=== PATIENT | female | born 1955 | race Caucasian/White ===

== ENCOUNTER 2023-11-19 09:01 | Observation (INO) | payer MEDICARE ==
[~2023-11-19] VITALS: Ht 162.6 cm; Wt 86.0 kg
[~2023-11-19 09:01] MED LIST: COZAAR 25MG25 MG/TAB PO; ESSENTIAL OILS; NORCO 325 MG-7.1 TAB PO; OSCAL 500 TAB500 MG PO; PLAVIX 75MG TAB75 MG PO; VITAMIN B1100 MCG/ML PO; VITAMIN C500 MG PO; moringa PO
[2023-11-19] MEDS ORDERED: ASPIRIN 81M81 MG/TA2 PO (09:19)
[2023-11-19] MEDS ORDERED: NS 1,000 ML IV ONE (10:15)
[2023-11-19 10:47] LABS: HEMATOCRIT 43.3 % (37.0-47.0); HEMOGLOBIN 14.4 g/dl (12.5-16.0); MEAN CELL VOLUME 91 fl (80.0-100.0); MEAN CORPUSCULAR HEMOGLOBIN 30 pg (27-31); MEAN CORPUSCULAR HGB CONC 33 g/dl (33.0-37.0); MEAN PLATELET VOLUME 10.7 fl (7.4-10.4); PLATELET COUNT 171 K/mm3 (130-400); RED BLOOD COUNT 4.78 M/mm3 (4.10-5.30); REDCELL DISTRIBUTION WIDTH-CV 12.2 % (11.5-14.5)
[2023-11-19 11:15] LABS: ALBUMIN 4.3 g/dL (3.4-4.8); CALCIUM 9.7 mg/dL (8.4-10.2); CREATININE, serum 1.04 mg/dL (0.57-1.11); POTASSIUM 4.1 mEq/L (3.5-4.5); TOTAL PROTEIN 8.1 g/dl (6.2-8.1)
[2023-11-19 11:43] LABS: BAND 1 % (0-10); BASOPHIL 1 % (0-2); LYMPHOCYTE 3 % (20.0-51.0); NEUTROPHILS 89 % (42.0-75.2)
[2023-11-19 11:44] LABS: PLATELET ESTIMATE NORMAL (NORMAL)
[2023-11-19] MEDS ORDERED: Iohexol 300 - 100 ML VIAL IV ONE (11:57)
[2023-11-19] MEDS ORDERED: NS 100 ML IV SCH (11:57)
[2023-11-19 12:10] LABS: URINE APPEARANCE CLOUDY (CLEAR/HAZY); URINE BLOOD 1+ (NEGATIVE); URINE COLOR YELLOW (YELLOW); URINE GLUCOSE NEGATIVE (NEGATIVE); URINE KETONE 1+ (NEGATIVE); URINE NITRATE NEGATIVE (NEGATIVE); URINE PROTEIN(semi-quant) TRACE (NEGATIVE)
[2023-11-19 12:23] LABS: COLLECTION METHOD CLEAN CATCH
[2023-11-19] MEDS ORDERED: Ondansetron 4 MG/2 ML VIAL IV PRN ×2 (13:15→17:45)
[2023-11-19] MEDS ORDERED: LR 1,000 ML IV SCH ×2 (13:15→17:45)
[2023-11-19] MEDS ORDERED: HYDROmorphone 0.5 MG/0.5 ML SYRINGE IV PRN ×2 (13:15→17:45)
[2023-11-19] MEDS ORDERED: cefTRIAXone 2 G in Water For Injection,Sterile 20 ML IV SCH (13:15)
[2023-11-19] MEDS ORDERED: metroNIDAZOLE 100 ML IV SCH ×2 (13:16→21:00)
[2023-11-19] MEDS ORDERED: CRESTOR20 MG PO (15:41)
--- NOTE | 2023-11-19 15:45 | NUR ---
PT ARRIVED TO THE FLOOR FROM ER. PT IS AXOX2-3 AND FORGETFUL. PT IS ON RA. PT'S VSS. PT ORIENTED TO ROOM AND FLOOR. FRIEND BEDSIDE. PT IS NPO. NOTIFIED OF ARRIVAL.
[2023-11-19 15:55] VITALS: BP 119/68; PULSE 68; TEMP 98.3
[2023-11-19 16:33] VITALS: BP_SYST 119
[2023-11-19 19:35] VITALS: BP 118/65; PULSE 80; TEMP 98.2
[2023-11-19 20:00] VITALS: BP_SYST 118
--- NOTE | 2023-11-19 20:07 | NUR ---
Report given to Isis Arango and hot tea given earlier per request.
[2023-11-19] MEDS ORDERED: Atorvastatin 40 MG TAB PO SCH (21:00)
[2023-11-19] MEDS ORDERED: Rosuvastatin 20 MG **** subs to Atorvastatin 40 MG PO SCH (21:00)
[2023-11-19 23:06] VITALS: BP 126/69; PULSE 90; TEMP 98.8
[2023-11-20] VITALS (19 sets, daily range): BP systolic 102–129; BP diastolic 47–76; PULSE 60–91; TEMP 97.8–98.7
[2023-11-20] MEDS ORDERED: Calcium Carbonate 500 MG TAB PO SCH (09:00)
[2023-11-20] MEDS ORDERED: Losartan 25 MG TAB PO SCH (09:00)
[2023-11-20] MEDS ORDERED: cefTRIAXone 2 G in Water For Injection,Sterile 20 ML IV SCH (09:00)
[2023-11-20 09:09] LABS: BASO # 0.1 K/mm3 (0.0-0.2); BASO % 0.5 % (0.0-2.0); EOS % 0.3 % (0.0-4.0); GRAN # 10.5 K/mm3 (1.4-6.5); GRAN % 81.3 % (42.2-75.2); HEMOGLOBIN 12.6 g/dl (12.5-16.0); LYMPH # 1.3 K/mm3 (1.2-3.4); LYMPH % 9.7 % (20.0-51.0); MEAN CELL VOLUME 91 fl (80.0-100.0); MEAN CORPUSCULAR HEMOGLOBIN 30 pg (27-31); MEAN CORPUSCULAR HGB CONC 33 g/dl (33.0-37.0); MONO % 7.7 % (1.7-9.3); PLATELET COUNT 150 K/mm3 (130-400); REDCELL DISTRIBUTION WIDTH-CV 12.9 % (11.5-14.5)
[2023-11-20 09:22] LABS: ALBUMIN 3.4 g/dL (3.4-4.8); BILIRUBIN,TOTAL 0.9 mg/dL (0.2-1.2); CALCIUM 8.8 mg/dL (8.4-10.2); CREATININE, serum 0.9 mg/dL (0.57-1.11); POTASSIUM 3.7 mEq/L (3.5-4.5)
--- NOTE | 2023-11-20 09:22 | NUR ---
PT RESTING IN BED, ALERT AND ORIENTEDX4. NO COMPLAINTS OF ABDOMINAL PAIN AT THIS TIME. PT REPORTS THAT SHE HAD A SMALL HEADACHE BUT IT WENT AWAY. ASSESSED PT. GAVE ANTIBIOTICS. PT HOPING TO GO HOME TODAY. ABDOMINAL ULTRA SOUND SCHEDULED FOR THIS AM. NO OTHER COMPLAINTS AT THIS TIME. CALL LIGTH WITHIN REACH.
--- NOTE | 2023-11-20 10:12 | NUR ---
Data: Health Occupations Teacher received spiritual care order number [id number] for routine spiritual care consult. Patient was unaware of the consult order. Patient had a lay-minster visitor from her evangelical when Health Occupations Teacher visited. Patient feels comfortable with the spiritual care she is receiving from her lay-supervisor communications and signals. Assessment: None. Patient's evangelical is caring for her spiritual needs. Plan of Care: Chaplains will remain available if requested while Patient is admitted to this hospital.
[2023-11-20] MEDS ORDERED: Indocyanine Green 12.5 MG in Water For Injection,Sterile 2.5 ML IV ONE (11:30)
--- NOTE | 2023-11-20 13:47 | NUR ---
Manager Quality Compliance met with patient and one of her friends at bedside to discuss discharge planning. Patient lives alone in [place] and sees Dr. Zelaya at [facility] for primary care. Patient stated she has a cane that she uses occasionally when her knee gives her problems, but no other DME. Patient is normally independent with ADLS and plans to return home at time of discharge. Patient has a DPOA-HC on file designating Nael Schmid and Dong Kulkarni (ph#[phone]). Patient advised Nael has , but Dong is still around. Patient belives she may have an updated DPOA-H and will have her friend look for it and bring it in if she finds it. Discharge Plan: Home
[2023-11-20] MEDS ORDERED: LR 1,000 ML IV SCH (14:00)
[2023-11-20] MEDS ORDERED: fentaNYL 50 MCG/ML 2 ML VIAL ONE ×2 (16:22→16:47)
[2023-11-20] MEDS ORDERED: Rocuronium 50 MG/5 ML Multi-Dose VIAL ONE (16:25)
[2023-11-20] MEDS ORDERED: dexAMETHasone 10 MG/ML VIAL ONE (16:46)
[2023-11-20] MEDS ORDERED: Ondansetron 4 MG/2 ML VIAL ONE (16:46)
[2023-11-20] MEDS ORDERED: Topical Skin Adhesive 1 EACH (1 ML) TOP ONE (16:54)
[2023-11-20] MEDS ORDERED: Ketorolac 30 MG/ML VIAL ONE (17:00)
[2023-11-20] MEDS ORDERED: Ondansetron 4 MG/2 ML VIAL IV PRN (17:00)
[2023-11-20] MEDS ORDERED: Meperidine 50 MG/ML 1 ML VIAL IV PRN (17:00)
[2023-11-20] MEDS ORDERED: droPERidol 2.5 MG/ML 2 ML VIAL IV PRN (17:00)
[2023-11-20] MEDS ORDERED: HYDROmorphone 1 MG/1 ML SYRINGE [PACU/SDC ONLY] IV PRN (17:00)
[2023-11-20] MEDS ORDERED: fentaNYL 50 MCG/ML 1 ML SYRINGE/VIAL [PACU/SDC ONLY] IV PRN (17:00)
[2023-11-20] MEDS ORDERED: Labetalol 100 MG/20 ML Multi-Dose VIAL ONE (17:00)
[2023-11-20] MEDS ORDERED: hydrALAZINE 20 MG/ML 1 ML VIAL IV PRN (17:00)
--- NOTE | 2023-11-20 18:21 | NUR ---
PT ARRIVED FROM PACU AT 1814. VITALS STABLE. NO COMPLAINTS OF PAIN AT THIS TIME. LAP SITES INTACT WITH SKIN GLUE. NO DRESSINGS X4.
--- NOTE | 2023-11-20 19:28 | NUR ---
report received from jason shin. pt sitting in bed finishing dinner. pt continues on post op vital signs wnl. pt ambulated to bathroom independently without issue. pt denies pain. call light in reach. all needs met at this time.
--- NOTE | 2023-11-20 21:00 | NUR ---
shift assessment complete, see documentation. pt tolerated hs meds well. pt noted to have soft pressures but A&O x4 and asymptomatic. post op vitals continue. call light in reach. all needs met at this time.
--- NOTE | 2023-11-20 22:21 | NUR ---
pt found in room with right ac iv ripped out. pt noted to be bleeding. bleeding now stopped. new iv placed to left hand. pt tolerated procedure well. ivf infusing without issue. pt bedding and gown changed. pt stated "i must have rolled too much in my sleep and accidentally pulled it out". pt alert and oriented x4. pt now resting in bed. call light in reach. all needs met at this time.
[2023-11-21] VITALS (7 sets, daily range): BP systolic 104–115; BP diastolic 63–66; PULSE 70–77; TEMP 97.9–98.2
--- NOTE | 2023-11-21 03:29 | NUR ---
pt found in room with blood on the floor. left hand iv was pulled out. pt only oriented to person and confused. pt is unsure of how her iv came out, why she is in the hospital, and what year it is. new iv placed to right forearm and covered with sharon wrap, pt tolerated well. fall precautions in place. call light in reach. all needs met at this time.
--- NOTE | 2023-11-21 09:00 | NUR ---
Pt. sitting up in bed. Assisted pt. to the bathroom and then to chair with sb assist. Pt. is A&OX3 this am. Pt. did have some confusion through the night but has improved this am. Pt. denies pain. Abd. sites CDi. Pt. denies further needs, call light within reach.
[2023-11-21] MEDS ORDERED: FLAGYL500 MG PO (12:44)
[2023-11-21] MEDS ORDERED: CIPRO 500MG TA500 MG PO (12:44)
[2023-11-21] MEDS ORDERED: NORCO 325 MG-51 TAB PO (12:44)
[2023-11-21] MEDS ORDERED: MOTRIN 600600 MG/TAB PO (12:44)
--- NOTE | 2023-11-21 14:10 | NUR ---
Pt. has met discharge criteria. INT discontinued from rt. forearm. Reviewed and gave dicharge paperwork to the pt. Pt. voices understanding. Pt. escorted out.
== END 2023-11-21 13:30 | disposition home or self-care (01) ==
LOC: COL.ER 09:01 → SURG 13:48
PROVIDERS: Emergency Medicine; Physician Assistant; ADMIT Surgery
DX: K80.12 Calculus of gallbladder with acute and chronic cholecystitis without obstruction (principal); K82.8 Other specified diseases of gallbladder
CPT/HCPCS: G0378; J0696; J1100; J1836; J1885; J1920; J2405; J2704; J3010; J7030; J7120; Q9967